=== PATIENT | female | born 1960 | race Caucasian/White ===

== ENCOUNTER 2021-10-18 12:27 | Outpatient (CLI) | payer BC | END 2021-10-18 12:28 | disposition home or self-care (01) | LOC: TBSIIMAG 12:27 | PROVIDERS: ATTEND Anesthesiology Pain Medicine | DX: M47.812 Spondylosis without myelopathy or radiculopathy, cervical region (principal) | CPT/HCPCS: 72141 ==

== ENCOUNTER 2021-10-25 12:32 | Outpatient (CLI) | payer BC | END 2021-10-25 12:33 | disposition home or self-care (01) | LOC: TBSIIMAG 12:32 | PROVIDERS: ATTEND Anesthesiology Pain Medicine | DX: M51.26 Other intervertebral disc displacement, lumbar region (principal); M47.812 Spondylosis without myelopathy or radiculopathy, cervical region; M43.17 Spondylolisthesis, lumbosacral region; M51.36 Other intervertebral disc degeneration, lumbar region; M51.37 Other intervertebral disc degeneration, lumbosacral region; M47.816 Spondylosis without myelopathy or radiculopathy, lumbar region | CPT/HCPCS: 72148 ==

== ENCOUNTER 2025-06-17 14:25 | Outpatient (CLI) | payer BC | END 2025-06-17 14:26 | disposition home or self-care (01) | LOC: SCSRAD 14:25 | PROVIDERS: ATTEND Family Medicine | DX: S69.91XA Unspecified injury of right wrist, hand and finger(s), initial encounter (principal) ==